=== PATIENT | male | born 1980 | race African-American/Black ===

== ENCOUNTER 2025-03-12 04:32 | Emergency (ER) | payer BC ==
[~2025-03-12] VITALS: Ht 180.3 cm; Wt 122.5 kg
[2025-03-12] MEDS ORDERED: METOCLOPRAMIDE HCL 10 MG TABLET ONE (05:13)
[2025-03-12] MEDS ORDERED: ACETAMINOPHEN 500 MG TABLET ONE (05:13)
[2025-03-12] MEDS ORDERED: NAPROXEN 500 MG TABLET ONE (05:13)
[2025-03-12] MEDS ORDERED: CEPH500C2 PO (05:13)
[2025-03-12] MEDS ORDERED: AMOX-430 PO (05:15)
[2025-03-12 05:39] VITALS: TEMP 98.3
[2025-03-12] MEDS: NAPROXEN 500 MG TABLET PO ONE (05:39)
[2025-03-12] MEDS: METOCLOPRAMIDE HCL 10 MG TABLET PO ONE (05:39)
[2025-03-12] MEDS: ACETAMINOPHEN 500 MG TABLET PO ONE (05:39)
[2025-03-12] MEDS: IV NORMAL SALINE 500 ML BAG IV ONE (05:53)
[2025-03-12 06:42] VITALS: BP 156/78; O2SAT 98
== END 2025-03-12 06:49 | disposition home or self-care (01) ==
LOC: ER 04:53
DX: J02.0 Streptococcal pharyngitis (principal); R51.9 Headache, unspecified; Z88.0 Allergy status to penicillin
CPT/HCPCS: 99284; 96360; Q0163; A4606; A4663; A9150; J8597